=== PATIENT | male | born 1975 | race Caucasian/White ===

== ENCOUNTER 2017-10-02 07:09 | Observation (INO) | payer OTHER ==
[2017-10-02] MEDS ORDERED: NS 1,000 ML IV ONE (07:13)
--- NOTE | 2017-10-02 07:31 | CPEKG ---
Heart Rate: 53 RR Interval: 1132 P-R Interval: 156 QRSD Interval: 96 QT Interval: 424 QTC Interval: 399 P [place]: 69 QRS [place]: 83 T Wave [place]: 32 EKG Severity - NORMAL ECG - EKG Impression: SINUS RHYTHM Electronically Signed By: Vladimir Mccann 03-Oct-2017 21:36:58
[2017-10-02 07:58] LABS: PLATELET COUNT 220 10^3/uL (150-400)
[2017-10-02] MEDS ORDERED: LIDOCAINE 1% 300 MG/30 ML SDV ONE (08:04)
[2017-10-02] MEDS ORDERED: HEPARIN 10,000 UNIT/10 ML MDV (1,000 UNIT/ML) ONE ×2 (08:04→09:49)
[2017-10-02] MEDS ORDERED: BUPIVACAINE 0.75% 10 ML SDV ONE (08:05)
[2017-10-02] MEDS ORDERED: ISOPROTERENOL HCL/D5W 0.2 MG/50 ML BAG IV ONE (08:05)
--- NOTE | 2017-10-02 08:17 | PDGENHP ---
History & Physical Chief Complaint: palpitations History of Present Illness: sv[facility] Relevant Physical Exam: [id number] cta ao3 Cardiorespiratory Assessment: svt for ablation
[2017-10-02] MEDS ORDERED: MIDAZOLAM 2 MG/2 ML VIAL IVP ONE (08:20)
--- NOTE | 2017-10-02 08:20 | PDANEPAE ---
ANE History of Present Illness SVT EP ablation ANE Past Medical History - Cardiovascular History Hx Arrhythmias: Yes - Pulmonary History Hx Asthma/Reactive Airway Disease: Yes Hx Sleep Apnea: No ANE Review of Systems Review of systems is: negative Review of Systems: - Exercise capacity Exercise capacity: >=4 METS ANE Patient History - Allergies Allergies/Adverse Reactions: No Known Allergies Allergy (Unverified 09/26/17 12:11) - Home Medications Home medications: home medication list seen and reviewed Home Medications: Ibuprofen [Motrin (*)] 200 mg PO DAILY PRN 09/26/17 [Last Taken Unknown] - NPO status NPO Status: no food or drink >8 hours - Anes Hx Anes Hx: no prior problems - Smoking Hx Smoking Status: Never smoked - Family Anes Hx Family Anes Hx: none ANE Labs/Vital Signs - Labs Result Diagrams: 10/02/17 07:45 10/02/17 07:45 - Vital Signs Vital Signs: reviewed preoperatively; see RN documention for details Height: 170.18 cm Weight: 58.967 kg ANE Physical Exam - Airway Neck exam: FROM Mallampati Score: Class 1 Mouth exam: normal dental/mouth exam - Pulmonary Pulmonary: no respiratory distress - Cardiovascular Cardiovascular: regular rate and rhythym - ASA Status ASA Status: II ANE Anesthesia Plan Anesthesia Plan: general endotracheal anesthesia
[2017-10-02] MEDS ORDERED: fentaNYL 100 MCG/2 ML INJ ONE ×2 (08:34→11:53)
[2017-10-02] MEDS ORDERED: LIDOCAINE 2% 100 MG/5 ML SYR ONE (08:34)
[2017-10-02] MEDS ORDERED: ONDANSETRON 4 MG/2 ML VIAL ONE (08:34)
[2017-10-02] MEDS ORDERED: DEXAMETHASONE 4 MG/ML VIAL ONE (08:34)
[2017-10-02] MEDS ORDERED: ROCURONIUM 50 MG/5 ML VIAL ONE (08:35)
[2017-10-02] MEDS ORDERED: PROPOFOL 200 MG/20 ML VIAL ONE (08:35)
[2017-10-02 08:37] LABS: INR 1.01 (0.83-1.16); PROTIME(PATIENT) 13.5 SEC (12.0-15.0)
[2017-10-02 08:38] LABS: PLATELET COUNT 210 10^3/uL (150-400)
[2017-10-02] MEDS ORDERED: HEPARIN/DEXTROSE 25,000 UNIT/500 ML BAG ONE (09:49)
[2017-10-02] MEDS ORDERED: ROCURONIUM 100 MG/10 ML VIAL ONE (09:51)
[2017-10-02] MEDS ORDERED: PHENYLEPHRINE HCL 100 MCG/ML SYR ONE (10:08)
[2017-10-02] MEDS ORDERED: PROTAMINE SULFATE 50 MG/5 ML VIAL IVP ONE (11:32)
[2017-10-02] MEDS ORDERED: GLYCOPYRROLATE 0.2 MG/1 ML VIAL ONE ×2 (11:35)
[2017-10-02] MEDS ORDERED: NEOSTIGMINE METHYLSULFATE 5 MG/5 ML SYR ONE (11:35)
--- NOTE | 2017-10-02 11:56 | EPPROC ---
Electrophysiology Procedure Note: ELECTROPHYSIOLOGIC STUDY AND CATHETER MEDIATED ABLATION OF 2 separate LEFT LATERAL ACCESSORY PATHWAY Procedures performed: 86486-42 EP evaluation with RA/RV/LA pace/record, with arrhythmia induction 71198-74 EP evaluation with RA/RV pace record, insert/reposition catheter, with arrhythmia induction 74195 Intracardiac catheter ablation, SVT arrhythmogenic focus 83873 3D mapping Fluoroscopy 86569 Intracardiac echocardiogram 97988-80 Transseptal puncture INDICATION: SVT PROCEDURE: Catheters and anesthesia: The patient arrived in the Electrophysiology Laboratory in the fasting state. The right clavicular region, right groin, and left groin area were prepped and draped in the usual sterile manner. Anesthesiologist Dr. Francia Kang administered general anesthesia. Appropriate non-invasive blood pressure, pulse oximetry and end-tidal CO2 monitoring was established. All catheters were placed percutaneously using the modified Seldinger technique , and advanced into position under fluoroscopic guidance. One #6 Slovenian hexapolar non-deflectable electrode catheter was inserted into the right atrial appendage via the left femoral vein (2mm spacing; except the proximal ring which was 25cm from the tip used for unipolar recordings). One #7 Slovenian deflectable octapolar electrode catheter was advanced to the His-bundle position via the left femoral vein (2mm spacing). One #7 Slovenian deflectable quadrapolar catheter was advanced to the anteroseptal right ventricle via the left femoral vein. One #7 Slovenian deflectable catheter with 10 pairs of electrodes was placed via the right femoral vein into the coronary sinus. Programmed stimulation of the right atrium, right ventricle and coronary sinus ( left atrium) was performed. Parahisian pacing demonstrated all retrograde conduction over AV node at 600 ms. Ventricular decremental pacing demonstrated left lateral accessory pathway. SVT was easily induced. Ventricular extrastimuli delivered during tachycardia during His bundle refractoriness advanced the next atrial activation with the same retrograde atrial activation sequence proving the tachycardia to be orthodromic AV reentrant tachycardia. In preparation for ablation of the left lateral accessory pathway a transeptal puncture was performed under fluoroscopic and hemodynamic guidance. Intracardiac echocardiography was used during the procedure. Mean left atrial pressure was 8 mm Hg mmHg. A SL1 sheath was inserted into the left atrium. The patient was administered IV heparin bolus and IV heparin continuous infusion prior to the transseptal puncture and the activated clotting time was maintained ~ 350 seconds during the remainder of the procedure. One #7 Slovenian mapping catheter with a 4 mm tip electrode and a sensor for the Ongjm3M mapping system was inserted into the SL1 sheath and advanced to the left atrium. Mapping was perfomed during ventricular pacing. A sharp retrograde accessory pathway potential was recorded at 0400 oclock at the mitral annulus as seen in the ENGLISH view. This preceded the earliest atrial activation by 15 ms. RF#1 was delivered to this site. RF#1 blocked conduction in the accessory pathway . Additional RF 2-4 were delivered slightly anterior and posterior to RF1 site. SVT was no longer inducible. Second pattern of AP conduction was seen after 30 minutes. Earliest activation and retrograde AP potential were seen at 0300 oclock at mitral annulus as seen in ENGLISH view. This was 1.1 cm anterior to original site of block. RF application at this site terminated AP conduction. Programmed stimulation from the RA, CS, right ventricle during the baseline state post ablation and during infusion of isoproterenol 2 mcg/min confirmed that there was no conduction over the left posterolateral accessory pathway and no orthodromic AVRT could be induced. The catheters were removed. Vascular access sheaths were removed in the EP lab after placing subcutaneous pursestring suture. The patient was transferred to the cardiovascular holding area in stable condition. There were no apparent complications. Results: A. Spontaneous Intervals: Pre ablation SCL 940 ms AH 75 ms HV 45 ms Post ablation SCL 760 ms AH 70 ms HV 45 ms B. Antegrade AV lyly function (decremental pacing) Pre ablation FPERP 320 ms WBB CL 310 ms Post ablation FPERP 310 ms WBB CL 300 ms C. Retrograde AV lyly function (decremental pacing) Pre ablation FPERP 420 ms Post ablation FPERP 410 ms WBB CL 400 ms D. Accessory pathway function 1. 2 separate AV accessory pathways were identified at the mitral annulus at 0300 and 0400 oclock as seen in the ENGLISH view. 2. The 0400 oclock AV accessory pathway conducted in the antegrade and retrograde directions. During ventricular pacing block over the AP occurred at 280 ms. E. Arrhythmias: 1. Atrial premature beats induced orthodromic AV reentrant tachycardia using the left lateral accessory AV pathway. Tachycardia cycle length: 290 ms AH interval 100 ms HV interval 40ms VA interval (His) 150 ms Shortest VA interval 110 ms at 0300 o clock mitral annulus CONCLUSIONS: 1. 2 separate AV left lateral accessory pathways, which exhibited conduction in the retrograde directions. 2. 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 3. Successful ablation of the left lateral accessory pathways with elimination of AV reentrant tachycardia. 4. No apparent complications. Patient Problems: Problems Problem Status Onset Supraventricular tachycardia Acute
--- NOTE | 2017-10-02 13:11 | CPEKG ---
Heart Rate: 62 RR Interval: 968 P-R Interval: 164 QRSD Interval: 94 QT Interval: 416 QTC Interval: 423 P [place]: 69 QRS [place]: 87 T Wave [place]: 37 EKG Severity - NORMAL ECG - EKG Impression: SINUS RHYTHM EKG Impression: ST ELEV, PROBABLE NORMAL EARLY REPOL PATTERN Electronically Signed By: Vladimir Mccann 03-Oct-2017 21:36:48
[2017-10-02] MEDS ORDERED: ACETAMINOPHEN 325 MG TAB PO PRN (17:45)
[2017-10-02] MEDS ORDERED: IBUPROFEN 200 MG TAB PO ONE (18:00)
[2017-10-03 04:28] LABS: PLATELET COUNT 192 10^3/uL (150-400)
[2017-10-03] MEDS ORDERED: ASPIRIN 81 MG CHEWABLE TAB PO SCH (09:00)
[2017-10-03 09:05] VITALS: BP 107/59
--- NOTE | 2017-10-03 09:10 | CPEKG ---
Heart Rate: 63 RR Interval: 952 P-R Interval: 168 QRSD Interval: 90 QT Interval: 408 QTC Interval: 418 P [place]: 74 QRS [place]: 86 T Wave [place]: 43 EKG Severity - NORMAL ECG - EKG Impression: SINUS RHYTHM Electronically Signed By: Vladimir Mccann 03-Oct-2017 21:36:31
--- NOTE | 2017-10-03 10:26 | GDS ---
[f rep st] DISCHARGE SUMMARY ADMISSION DIAGNOSIS: Supraventricular tachycardia. DISCHARGE DIAGNOSES: 1. Supraventricular tachycardia. 2. Status post electrophysiology and ablation for atrioventricular lyly reentrant tachycardia. PROCEDURES PERFORMED DURING HOSPITALIZATION: 1. Electrocardiogram. 2. Electrophysiology study. 3. Ablation of left lateral accessory pathway with the elimination of AV reentry tachycardia. 4. Echocardiogram. BRIEF HISTORY: Please see H and P. Briefly, the patient is a 41-year-old male. He reports he has been having episodes of palpitations for greater than 10 years, usually 1-2 a month. They were triggered by bending down or with exercise, lasting 1-2 hours. He feels over the last few months that they have been worse. He did see Dr. Partida in the office, in which studies were reviewed. It was felt the best options were given to the patient, including medical therapy or undergoing electrophysiology study. Patient wanted to go ahead with the procedure. HOSPITAL COURSE: Patient admitted through CVC, prepped for procedure, and taken to the electrophysiology lab. There, Dr. Partida performed EP procedure, identifying 2 separate AV left lateral accessory pathways, which exhibit conduction into the retrograde direction. At that point, ablation was performed , eliminating reentry tachycardia, no apparent complications. Patient was transferred back to the CVC and ultimately to the PCU for overnight observation. There, he has been maintaining sinus rhythm. He has been up and walking in the unit without difficulties. He reports no chest pain, shortness of breath, or palpitations throughout the evening. His vital signs remained stable. PHYSICAL EXAMINATION: GENERAL APPEARANCE: Thin, well-groomed male. He is alert and oriented to person, place, time, and situation. Appears to be in no acute distress. VITAL SIGNS: Current vital signs are blood pressure of 107/59, heart rate 59, sinus bradycardia on the monitor. Respirations are 12, saturating 94% on room air. Temperature 36.8 degree Celsius. HEENT: Head is normocephalic. Lips and tongue are pink and moist, with no signs of cyanosis. Conjunctivae are pink. NECK: Trachea is midline, +2 carotid pulses bilateral. No auscultated bruits. No jugular vein distention. RESPIRATORY: Lungs clear to auscultation. No rhonchi, rales or wheezes. No accessory muscle use. No intercostal muscle retraction noted. CARDIAC: Regular rate, regular rhythm, S1, S2, no S3, S4, gallops, rubs or murmurs noted. ABDOMEN: Soft, nontender, bowel sounds x4 quadrants. No organomegaly. No palpable masses. SKIN: [place], warm, dry, no cyanosis, no clubbing, no peripheral edema. VASCULAR : +2 carotids bilateral, +2 radials bilateral, +2 dorsal pedal and posterior tibial pulses bilateral. Catheter insertion site, bilateral groin site, right groin noted with some mild ecchymosis around R groin insertion site, but soft and nontender. Both sites without redness, swelling or drainage. No auscultated bruit noted over either site. Normal CMS checks to the lower extremities. LABORATORY STUDIES: Laboratory studies drawn today show WBC of 10.44, hemoglobin of 14.8, hematocrit of 43.3 platelet count of 192. Sodium of 138, potassium 3.9, chloride 105, CO2 29, BUN 16, creatinine 0.9, glucose 102, calcium 8.9, troponin of 0.183 noted, expected elevated cardiac enzymes status post EP procedure. PROCEDURES: Electrophysiology and ablation procedure as mentioned above. Preliminary of this morning's echocardiogram showing normal LV systolic function. No wall motion abnormalities. Normal ejection fraction. No pericardial effusion. Morning electrocardiogram shows sinus rhythm, with no ST or T-wave abnormalities. Normal axis. DISPOSITION: Patient will be discharged home under activity restriction of not lifting more than 10 pounds for the next week and no strenuous activity for the next 2 weeks. DISCHARGE MEDICATIONS: Please see discharge medication reconciliation sheet. Note, patient has been started on aspirin at 81 mg p.o. daily, which he will be required to take for the next 6 weeks. DISCHARGE INSTRUCTIONS: Post-SVT ablation discharge instructions went over with the patient and his , including monitoring for signs of infection, bleeding precautions, activity restrictions, medication compliance. Patient has also been told that for the next 6 weeks, he is under DVT precautions, which requires every 35-45 minutes while awake, he needs to get up and walk for 5-10 minutes. At the time of discharge, patient and verbalized understanding all instructions and have no questions or concerns. The patient has a followup appointment set with Dr. Partida in the next 3 weeks. Addendum S Helga - Judi groin bleed on EP lab table post sheath removal, controlled with manual pressure. Ecchymosis present but no hematoma. Patient to observe and call us if worse. Total time spent on discharge greater than 30 minutes. /[id number]/MODL MTDAntoine
--- NOTE | 2017-10-08 14:19 | ECHO ---
[email or web address] [address] [address] Main: [phone] Fax: Transthoracic Echocardiogram Name: TASHA DUONG MR#: [id number] Study Date: 10/03/2017 Study Time: 08:15 AM Date of : 1975 Age: 41 year(s) Height: 170.2 cm (67 in.) Weight: 58.97 kg (130 lb.) BSA: 1.68 m2 Gender: Male Examination: Echo Indication: F/U Post EP Study, Supraventricular Tachycardia Image Quality: Adequate Contrast: Requested by: Cooper Partida BP: 109 mmHg/55 mmHg Heart Rate: Rhythm: Indication: F/U Post EP Study, Supraventricular Tachycardia Procedure Staff [employer] Car: Lizzette Riddle RD Reading Physician: Amilcar Mckeon MD Requesting Provider: Conclusions: Normal size left ventricle. Normal global systolic LV function. EF is 61 %. Normal diastolic LV function. Normal RV function. The left atrium is normal in size. The right atrium is normal in size. The pulmonary artery pressure is normal. No pericardial effusion. Measurements: Chambers Valvular Assessment AV/MV Valvular Assessment TV/PV Normal Normal Normal Name Value Range Name Value Range Name Value Range Ao Carol Ann (2D): 2.5 cm (1.4 cm-2.6 AV Vmax: 1.10 m/s (1 m/s-1.7 PV Vmax: 0.99 m/s (0.6 m/s-0.9 cm) m/s) m/s) IVSd (2D): 0.9 cm (0.6 cm-1.1 AV maxP mmHg ( - ) PV PGmax: 4 mmHg ( - ) cm) AV meanP mmHg ( - ) LVDd (2D): 4.5 cm (4.2 cm-5.9 NAV (VTI): 2.3 cm ( - ) cm) MV E Vmax: 0.65 m/s ( - ) LVDs (2D): 3.0 cm (2.1 cm-4 MV A Vmax: 0.40 m/s ( - ) cm) MV E/A: 1.62 ( - ) LVPWd (2D): 0.9 cm (0.6 cm-1 cm) MV PHT: 0.071 s ( - ) LVOTd 2.1 cm 2.1 cm mm MVA (PHT): 3.1 s ( - ) LVEF (BP): 61 % (>=55 %) RVDd(2D): 2.4 cm (1.9 cm-3.8 cmmm) Continued Measurements: Patient: TASHA DUONG Study Date: 10/03/2017 Page 1 of 2 08:15 AM Chambers Valvular Assessment AV/MV Valvular Assessment TV/PV Name Value Name Value Name Value LADs: 2.8 cm MV DecTime: 225 m/s CVP (est.): 5 mmHg LADs Lon.1 cm MV E' Septal: 0.10 m/s LA Area: 13.0 cm2 MV E/E' Septal: 6.30 LA Volume: 30 ml MV E/E' Lateral: 5.10 LA Volume Index: 17.9 ml/m2 RA Area: 15.6 cm2 Additional Vessels Name Value Ao Ascendin.3 cm Inferior Vena Cava: 1.0 cm Findings: Left Ventricle: Normal size left ventricle. No LV hypertrophy. Normal global systolic LV function. EF is 61 %. No regional wall motion abnormality. Normal diastolic LV function. Right Ventricle: Normal size right ventricle. Normal RV function. Left Atrium: The left atrium is normal in size. Right Atrium: The right atrium is normal in size. Mitral Valve: The mitral valve is normal in appearance and function. Mild mitral valve regurgitation is present. No mitral stenosis is present. Aortic Valve: The aortic valve is tri-leaflet. There is no significant aortic valve regurgitation. No aortic valve stenosis is present. Tricuspid Valve: The tricuspid valve is normal in appearance and function. Mild tricuspid regurgitation is present. The pulmonary artery pressure is normal. Pulmonic Valve: The pulmonic valve is normal in appearance and function. There is no pulmonic regurgitation seen. Aorta: The aorta is normal. Normal size aortic root measuring 2.5 cm. Normal size ascending aorta measuring 2.3 cm. IVC: The IVC is normal sized. Pericardium: No pericardial effusion. No pleural effusion. (No Signature Object) Patient: TASHA DUONG Study Date: 10/03/2017 Page 2 of 2 08:15 AM [id number]
--- NOTE | 2017-10-14 11:21 | GPROG ---
[f rep st] PROGRESS NOTE POSTOPERATIVE NOTE The patient was taken to CVC after his procedure in stable condition. Respiratory status and cardiovascular status were normal and stable similar to preop condition. Postop nausea and vomiting, as well as and pain were well- controlled. No anesthetic complications were noted at the time. Pt. was mildly sleepy, able to participate in evaluation. /[id number]/MODL MTDD
== END 2017-10-03 11:39 | disposition home or self-care (01) ==
LOC: EDSEX → FCATH 07:09 → MERGE 08:30 → F2W 11:56
PROVIDERS: ADMIT Internal Medicine Cardiovascular Disease; ATTEND Internal Medicine Cardiovascular Disease
PROC: 4A023FZ Measurement of Cardiac Rhythm, Percutaneous Approach (ICD-10-PCS; principal; 2017-10-02)
PROC: 02K83ZZ Map Conduction Mechanism, Percutaneous Approach (ICD-10-PCS; principal; 2017-10-02)
PROC: B245ZZZ Ultrasonography of Left Heart (ICD-10-PCS; principal; 2017-10-02)
PROC: 02583ZZ Destruction of Conduction Mechanism, Percutaneous Approach (ICD-10-PCS; principal; 2017-10-02)
PROC: 5A1213Z Performance of Cardiac Pacing, Intermittent (ICD-10-PCS; principal; 2017-10-02)
DX: I49.3 Ventricular premature depolarization (principal); R00.2 Palpitations
CPT/HCPCS: 93005; 93306; 93613; 93621; 93623; 93653; 93655; 93662; C1730; C1732; C1893; G0378; C1731; C1759; J1100; J1644; J2001; J2250; J2370; J2405; J2704; J2710; J2720; J3010